=== PATIENT | female | born 1965 | race Caucasian/White ===

== ENCOUNTER 2017-10-12 06:53 | Emergency (ER) | payer SELFPAY ==
[2017-10-12] MEDS ORDERED: Amoxicillin-Clav 875-125 mg Tab PO STA (07:31)
--- NOTE | 2017-10-12 07:32 | C.PDOC ---
History Of Present Illness 52 year old female presents to ED for evaluation of right facial swelling, and mild pain and itchiness to the area. Notes discomfort to right upper teeth. Otherwise, denies any trauma, vision change, fever, redness, or any other associated symptoms at this time. Time Seen by Provider: 10/12/17 07:13 Chief Complaint (Nursing): Abnormal Skin Integrity History Per: Patient History/Exam Limitations: no limitations Current Symptoms Are (Timing): Still Present Recent travel outside of the [place]: No Additional History Per: Patient Past Medical History Reviewed: Historical Data, Nursing Documentation, Vital Signs Vital Signs: Last Vital Signs Temp 98 F 10/12/17 07:49 Pulse 90 10/12/17 07:49 Resp 16 10/12/17 07:49 BP 120/78 10/12/17 07:49 Pulse Ox 97 10/12/17 08:19 - Medical History PMH: Diabetes (NIDDM), HTN Family History: States: Unknown Family Hx - Social History Hx Tobacco Use: No Hx Alcohol Use: No Hx Substance Use: No - Immunization History Hx Tetanus Toxoid Vaccination: No Hx Influenza Vaccination: No Hx Pneumococcal Vaccination: No Review Of Systems Constitutional: Negative for: Fever, Chills Eyes: Negative for: Pain, Vision Change ENT: Positive for: Other (right facial swelling) Cardiovascular: Negative for: Chest Pain Respiratory: Negative for: Shortness of Breath Physical Exam - Physical Exam Appears: Non-toxic, No Acute Distress Skin: Normal Color, Warm, Dry Head: Atraumatic, Normacephalic, No Tenderness, Swelling (facial swelling around right maxillary and nasolabial fold, no tactile warmth) Eye(s): bilateral: Normal Inspection, PERRL, EOMI Ear(s): Bilateral: Normal Nose: Normal Oral Mucosa: Moist Tongue: Normal Appearing Lips: Normal Appearing Teeth: No Tender To Palpation, Other (poor dentition) Gingiva: Normal Appearing Throat: Normal, No Erythema Neck: Normal ROM, Supple Chest: Symmetrical Cardiovascular: Rhythm Regular Respiratory: No Accessory Muscle Use Extremity: Normal ROM, No Deformity Neurological/Psych: Oriented x3, Normal Speech ED Course And Treatment O2 Sat by Pulse Oximetry: 97 (RA) Pulse Ox Interpretation: Normal Medical Decision Making Medical Decision Making: Plan: * Amoxicillin Patient instructed to apply ice or heat to area and follow up with dentist. Disposition Counseled Patient/Family Regarding: Diagnosis, Need For Followup, Rx Given - Disposition Disposition: HOME/ ROUTINE Disposition Time: 07:32 Condition: GOOD Additional Instructions: SEGUIMIENTO CON DENTISTA PARA REEVALUACIN. DEVUELVA A ED SI ALGUNA OTRA MODIFICACIN O N[place] CAMBI[place]. Prescriptions: Amoxicillin/Clavulanate [Augmentin 875 MG-125 MG] 1 tab PO BID #14 tab Ibuprofen [Motrin] 600 mg PO Q8 #30 tab Instructions: Dental Abscess (ED) Forms: [employer] (Hungarian) Print Language: DUTCH - POA Present On Arrival: None - Clinical Impression Clinical Impression: Facial swelling, Pain, dental - PA / PRODUCT TECHNICIAN / Resident Statement MD/DO has reviewed & agrees with the documentation as recorded. - Scribe Statement The provider has reviewed the documentation as recorded by the Bernardaibandria Garcia All medical record entries made by the Rupert were at my direction and personally dictated by me. I have reviewed the chart and agree that the record accurately reflects my personal performance of the history, physical exam, medical decision making, and the department course for this patient. I have also personally directed, reviewed, and agree with the discharge instructions and disposition.
[2017-10-12] MEDS ORDERED: Amoxicillin-Clav 875-125 mg Tab PO ONE (07:47)
[2017-10-12 07:50] VITALS: BP 120/78; PULSE 90; RESP 16; TEMP 98
[2017-10-12 08:01] VITALS: O2SAT 97
== END 2017-10-12 07:50 | disposition home or self-care (01) ==
LOC: C.ER 06:53
DX: R22.0 Localized swelling, mass and lump, head (principal); K08.89 Other specified disorders of teeth and supporting structures